=== PATIENT | male | born 1990 | race American Indian/Alaskan Native ===

== ENCOUNTER 2017-07-04 18:03 | Emergency (ER) | payer SELFPAY ==
--- NOTE | 2017-07-04 19:08 | Emergency Department Report ---
- General Chief Complaint: Upper Respiratory Infection Stated Complaint: FLU LIKE SX Time Seen by Provider: 07/04/17 19:02 Source: patient Mode of arrival: Ambulatory Limitations: No Limitations - History of Present Illness Initial Comments: 26-year-old male past medical history none presents with complaint of sore throat and nonproductive cough with slight MD Complaint: rhinorrhea, nasal congestion, sinus pain - Related Data Previous Rx's Medication Instructions Recorded Last Taken Type Dextromethorphan/Benzocaine 1 each PO Q4H PRN #1 lozenge 07/04/17 Unknown Rx [Cepacol Sorethroat-Cough Wilfrido] Naproxen 500 mg PO BID PRN #30 tablet 07/04/17 Unknown Rx Phenylephrine/Dm/Acetaminop/GG 10 ml PO Q6H PRN #1 liquid 07/04/17 Unknown Rx [Mucinex Dwft-Zkw-Hvmsfxrgta Lq] Allergies Allergy/AdvReac Type Severity Reaction Status Date / Time No Known Allergies Allergy Unverified 07/04/17 19:03 ED Review of Systems ROS: Stated complaint: FLU LIKE SX Other details as noted in HPI ED Past Medical Hx - Past Medical History Previous Medical History?: No - Surgical History Past Surgical History?: No - Social History Smoking Status: Never Smoker Substance Use Type: None - Medications Home Medications: Home Medications Medication Instructions Recorded Confirmed Last Taken Type Dextromethorphan/Benzocaine 1 each PO Q4H PRN #1 lozenge 07/04/17 Unknown Rx [Cepacol Sorethroat-Cough Wilfrido] Naproxen 500 mg PO BID PRN #30 tablet 07/04/17 Unknown Rx Phenylephrine/Dm/Acetaminop/GG 10 ml PO Q6H PRN #1 liquid 07/04/17 Unknown Rx [Mucinex Ilif-Lvh-Qtmqenrkhr Lq] ED Physical Exam - General Limitations: No Limitations ED Course Vital Signs 07/04/17 19:00 Temperature 99.1 F Pulse Rate 61 Respiratory 16 Rate Blood Pressure 122/77 O2 Sat by Pulse 97 Oximetry ED Medical Decision Making - Medical Decision Making A/P: Viral syndrome 1- 2- 3- 4- Critical care attestation.: If time is entered above; I have spent that time in minutes in the direct care of this critically ill patient, excluding procedure time. ED Disposition Clinical Impression: Flu-like symptoms Disposition: DC-01 TO HOME OR SELFCARE Is pt being admited?: No Does the pt Need Aspirin: No Condition: Stable Instructions: Upper Respiratory Infection (ED), Viral Syndrome (ED), Cold Symptoms (ED) Prescriptions: Dextromethorphan/Benzocaine [Cepacol Sorethroat-Cough Wilfrido] 1 each PO Q4H PRN #1 lozenge PRN Reason: Sore Throat Naproxen 500 mg PO BID PRN #30 tablet PRN Reason: Pain Phenylephrine/Dm/Acetaminop/GG [Mucinex Vnbu-Yed-Mtixkxtbyf Lq] 10 ml PO Q6H PRN #1 liquid PRN Reason: Cough Referrals: [facility] [Outside] - 3-5 Days [facility] [Outside] - 3-5 Days Forms: Work/School Release Form(ED) Time of Disposition: 21:40
[2017-07-04] MEDS ORDERED: MOTRIN PO ONE (19:39)
[2017-07-04 22:04] VITALS: BP 130/79
== END 2017-07-04 21:00 | disposition home or self-care (01) ==
LOC: ED 18:03
DX: J11.1 Influenza due to unidentified influenza virus with other respiratory manifestations (principal)
CPT/HCPCS: 87400; 87491; 99282

== ENCOUNTER 2017-09-27 11:37 | Emergency (ER) | payer OTHER ==
[2017-09-27 11:53] VITALS: BP 136/64
--- NOTE | 2017-09-27 12:59 | Emergency Department Report ---
ED Male HPI - General Chief complaint: Upper Respiratory Infection Stated complaint: SEVERE CONGESTION Time Seen by Provider: 09/27/17 12:53 Source: patient Mode of arrival: Ambulatory Limitations: No Limitations - History of Present Illness MD Complaint: penile discharge, dysuria - Related Data Previous Rx's Medication Instructions Recorded Last Taken Type Dextromethorphan/Benzocaine 1 each PO Q4H PRN #1 lozenge 07/04/17 Unknown Rx [Cepacol Sorethroat-Cough Wilfrido] Naproxen 500 mg PO BID PRN #30 tablet 07/04/17 Unknown Rx Phenylephrine/Dm/Acetaminop/GG 10 ml PO Q6H PRN #1 liquid 07/04/17 Unknown Rx [Mucinex Ttyw-Pbb-Woqpcxedto Lq] Allergies Allergy/AdvReac Type Severity Reaction Status Date / Time No Known Allergies Allergy Unverified 07/04/17 19:03 ED Review of Systems ROS: Stated complaint: SEVERE CONGESTION Other details as noted in HPI ED Past Medical Hx - Past Medical History Previous Medical History?: No - Surgical History Past Surgical History?: No - Social History Smoking Status: Never Smoker Substance Use Type: Alcohol - Medications Home Medications: Home Medications Medication Instructions Recorded Confirmed Last Taken Type Dextromethorphan/Benzocaine 1 each PO Q4H PRN #1 lozenge 07/04/17 Unknown Rx [Cepacol Sorethroat-Cough Wilfrido] Naproxen 500 mg PO BID PRN #30 tablet 07/04/17 Unknown Rx Phenylephrine/Dm/Acetaminop/GG 10 ml PO Q6H PRN #1 liquid 07/04/17 Unknown Rx [Mucinex Trxo-Qre-Ouytwawzay Lq] ED Physical Exam - General Limitations: No Limitations ED Course Vital Signs 09/27/17 11:51 Temperature 98.6 F Pulse Rate 62 Respiratory 18 Rate Blood Pressure 136/64 O2 Sat by Pulse 97 Oximetry Critical care attestation.: If time is entered above; I have spent that time in minutes in the direct care of this critically ill patient, excluding procedure time. ED Disposition Condition: Stable Referrals: PRIMARY CARE, [Primary Care Provider] - 3-5 Days
--- NOTE | 2017-09-27 13:03 | Emergency Department Report ---
ED General Adult HPI - General Chief complaint: Upper Respiratory Infection Stated complaint: SEVERE CONGESTION Time Seen by Provider: 09/27/17 12:53 Source: patient Mode of arrival: Ambulatory Limitations: No Limitations - History of Present Illness Initial comments: 27-year-old -[place] male comes in complaining of being tired slight cough and is still little runny nose and nasal congestion. Reports he works 2 jobs feels like he is not getting enough sleep and rest. Patient denies any shortness of breathing and chest pain no nausea no vomiting or fever no chills no headache. He does report nasal congestion and runny nose that is worse when he goes outside in the ear. 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 She reports no past medical history currently takes no medications on a daily basis has no known drug allergies -: days(s) (4) Severity scale (0 -10): 0 Improves with: rest Worsens with: other (working) Treatments Prior to Arrival: none - Related Data Previous Rx's Medication Instructions Recorded Last Taken Type Dextromethorphan/Benzocaine 1 each PO Q4H PRN #1 lozenge 07/04/17 Unknown Rx [Cepacol Sorethroat-Cough Wilfrido] Naproxen 500 mg PO BID PRN #30 tablet 07/04/17 Unknown Rx Phenylephrine/Dm/Acetaminop/GG 10 ml PO Q6H PRN #1 liquid 07/04/17 Unknown Rx [Mucinex Lfpo-Gck-Sxxrbyzblj Lq] Allergies Allergy/AdvReac Type Severity Reaction Status Date / Time No Known Allergies Allergy Unverified 07/04/17 19:03 ED Review of Systems ROS: Stated complaint: SEVERE CONGESTION Other details as noted in HPI Constitutional: denies: chills, fever Eyes: denies: eye pain, eye discharge, vision change ENT: congestion (nasal), other (rhinorrhea). denies: ear pain, throat pain Respiratory: denies: cough, shortness of breath, wheezing Cardiovascular: denies: chest pain, palpitations Endocrine: no symptoms reported Gastrointestinal: denies: abdominal pain, nausea, diarrhea Genitourinary: denies: urgency, dysuria Musculoskeletal: denies: back pain, joint swelling, arthralgia Skin: denies: rash, lesions Neurological: denies: headache, weakness, paresthesias Psychiatric: denies: anxiety, depression Hematological/Lymphatic: denies: easy bleeding, easy bruising ED Past Medical Hx - Past Medical History Previous Medical History?: No - Surgical History Past Surgical History?: No - Social History Smoking Status: Never Smoker Substance Use Type: Alcohol - Medications Home Medications: Home Medications Medication Instructions Recorded Confirmed Last Taken Type Dextromethorphan/Benzocaine 1 each PO Q4H PRN #1 lozenge 07/04/17 Unknown Rx [Cepacol Sorethroat-Cough Wilfrido] Naproxen 500 mg PO BID PRN #30 tablet 07/04/17 Unknown Rx Phenylephrine/Dm/Acetaminop/GG 10 ml PO Q6H PRN #1 liquid 07/04/17 Unknown Rx [Mucinex Dtfq-Dko-Mgssisxsnm Lq] ED Physical Exam - General Limitations: No Limitations General appearance: alert, in no apparent distress - Head Head exam: Present: atraumatic, normocephalic - Eye Eye exam: Present: normal appearance - ENT ENT exam: Present: mucous membranes moist - Neck Neck exam: Present: normal inspection - Respiratory Respiratory exam: Present: normal lung sounds bilaterally. Absent: respiratory distress - Cardiovascular Cardiovascular Exam: Present: regular rate, normal rhythm. Absent: systolic murmur, diastolic murmur, rubs, gallop - GI/Abdominal GI/Abdominal exam: Present: soft, normal bowel sounds - Rectal Rectal exam: Present: deferred - Extremities Exam Extremities exam: Present: normal inspection - Back Exam Back exam: Present: normal inspection - Neurological Exam Neurological exam: Present: alert, oriented X3 - Psychiatric Psychiatric exam: Present: normal affect, normal mood - Skin Skin exam: Present: warm, dry, intact, normal color. Absent: rash ED Course Vital Signs 09/27/17 11:51 Temperature 98.6 F Pulse Rate 62 Respiratory 18 Rate Blood Pressure 136/64 O2 Sat by Pulse 97 Oximetry ED Medical Decision Making - Medical Decision Making Patient's been evaluated by this provider fast track. No labs or x-rays to be ordered. Discussed the patient he can take tbow-qof-wcdbfeb Claritin or Zyrtec' s for allergic rhinitis. Symptoms persisted this worse follow-up with primary care provider. Patient verbalized understanding. Critical care attestation.: If time is entered above; I have spent that time in minutes in the direct care of this critically ill patient, excluding procedure time. ED Disposition Clinical Impression: Fatigue Qualifiers: Fatigue type: unspecified Qualified Code(s): R53.83 - Other fatigue Disposition: DC-01 TO HOME OR SELFCARE Is pt being admited?: No Does the pt Need Aspirin: No Condition: Stable Instructions: Allergic Rhinitis (ED) Additional Instructions: Please take eguf-vpz-vwegsjz Claritin or Zyrtec for seasonal allergies. Follow her primary care provider symptoms persist or gets worse. Referrals: PRIMARY CARE,MD [Primary Care Provider] - 3-5 Days your,provider [Other] - 3-5 Days Forms: Work/School Release Form(ED)
== END 2017-09-27 13:13 | disposition home or self-care (01) ==
LOC: ED 11:37
DX: R53.83 Other fatigue (principal); R05 Cough; R09.81 Nasal congestion; R09.89 Other specified symptoms and signs involving the circulatory and respiratory systems
CPT/HCPCS: 99282